=== PATIENT | male | born 1960 | race Native Hawaiian/Other Pacific Islander ===

== ENCOUNTER 2017-09-30 18:10 | Emergency (ER) | payer SELFPAY ==
[2017-09-30 18:58] LABS: Bilirubin,Urine NEG (Negative); Blood,Urine NEG (Negative); Color,Urine Yellow (Yellow); Hyaline Casts,Urine 1 /LPF; Mucus,Urine FEW /HPF; Protein,Urine <15 mg/dL mg/dL (Negative); Urobilinogen,Urine < 2.0 mg/dL (<2.0)
[2017-09-30 19:15] LABS: Amphetamine Screen,Urine PRESUMPTIVE NEGATIVE; Cannabinoid Screen,Urine PRESUMPTIVE NEGATIVE; Cocaine Screen,Urine PRESUMPTIVE NEGATIVE; Methadone Screen,Urine PRESUMPTIVE NEGATIVE; Opiate Screen,Urine PRESUMPTIVE NEGATIVE
[2017-09-30 19:29] LABS: Benzodiazepines Screen,Urine PRESUMPTIVE POSITIVE
[2017-09-30 19:36] LABS: Hematocrit 39.4 % (35.5-45.6); Hemoglobin 13.4 gm/dl (11.8-15.2); Mean Corpuscular HGB Conc 34 % (32-34); Mean Corpuscular Hemoglobin 33 pg (28-32); Mean Corpuscular Volume 96 fl (84-94); Platelet Count 242 K/mm3 (140-440); Red Blood Count 4.09 M/mm3 (3.65-5.03)
[2017-09-30 19:57] LABS: Alanine Aminotransferase 232 units/L (7-56); Albumin 4.1 g/dL (3.9-5); BUN/Creatinine Ratio 15; Blood Urea Nitrogen 12 mg/dL (9-20); Calcium 8.6 mg/dL (8.4-10.2); Hemolysis Index 8
[2017-09-30 20:13] LABS: Basophils % (Manual) 0 % (0.0-1.8); Total Cells Counted 100
[2017-09-30 20:14] LABS: RBC Morphology Normal
[2017-10-01] MEDS ORDERED: ATIVAN IV ONE (03:15)
[2017-10-01] MEDS ORDERED: NACL 0.9% 1000 ML 1,000 ML IV ONE (03:15)
[2017-10-01 03:46] LABS: INR 0.87 (0.87-1.13)
--- NOTE | 2017-10-01 04:06 | XRay Report ---
FINAL REPORT PROCEDURE: XR CHEST ROUTINE 2V TECHNIQUE: PA and lateral chest radiographs were obtained. CPT 80098 HISTORY: Alcohol Intoxication COMPARISON: No prior studies are available for comparison. FINDINGS: Heart: Normal. Mediastinum/Vessels: Normal. Lungs/Pleural space: Normal. Bony thorax: No acute osseous abnormality. Other: IMPRESSION: Normal examination.
[2017-10-01 06:06] LABS: Bilirubin,Urine NEG (Negative); Blood,Urine NEG (Negative); Color,Urine Straw (Yellow); Protein,Urine <15 mg/dL mg/dL (Negative); RBC,Urine < 1.0 /HPF (0.0-6.0); Urobilinogen,Urine < 2.0 mg/dL (<2.0); WBC,Urine < 1.0 /HPF (0.0-6.0)
[2017-10-01 06:14] LABS: Amphetamine Screen,Urine PRESUMPTIVE NEGATIVE; Cannabinoid Screen,Urine PRESUMPTIVE NEGATIVE; Cocaine Screen,Urine PRESUMPTIVE NEGATIVE; Methadone Screen,Urine PRESUMPTIVE NEGATIVE; Opiate Screen,Urine PRESUMPTIVE NEGATIVE
[2017-10-01 06:25] LABS: Benzodiazepines Screen,Urine PRESUMPTIVE POSITIVE
--- NOTE | 2017-10-01 06:27 | Emergency Department Report ---
<CHRIS LOZADA - Last Filed: 10/01/17 06:27> ED Alcohol HPI - General Chief Complaint: Alcohol Stated Complaint: DETOX Time Seen by Provider: 10/01/17 03:15 Source: patient Mode of arrival: Ambulatory Limitations: No Limitations - History of Present Illness MD Complaint: alcohol intoxication, medical clearance for det Time Since Last Drink: 18 -: hour(s) Chronic Alcohol Use: Yes Previous Visits for Alcohol Intoxication?: No Recent Trauma: No Associated Symptoms: denies other symptoms. denies: nausea, vomiting, syncope, seizure, tremors, abdominal pain, depression, suicidality Treatments Prior to Arrival: none - Related Data Home Medications Medication Instructions Recorded Confirmed Last Taken Aspirin 81 mg PO DAILY 10/01/17 10/01/17 09/29/17 Carvedilol [Coreg] 6.25 mg PO DAILY 10/01/17 10/01/17 09/29/17 Diazepam Tab [Valium] 5 mg PO TID PRN 10/01/17 10/01/17 09/29/17 Losartan [Cozaar] 100 mg PO QDAY 10/01/17 10/01/17 09/29/17 busPIRone [Buspar] 15 mg PO DAILY 10/01/17 10/01/17 Unknown Allergies Allergy/AdvReac Type Severity Reaction Status Date / Time No Known Allergies Allergy Verified 10/01/17 06:36 ED Review of Systems ROS: Stated complaint: DETOX Other details as noted in HPI Constitutional: denies: chills, fever ENT: denies: ear pain, throat pain Respiratory: denies: cough, shortness of breath, wheezing Cardiovascular: denies: chest pain, palpitations Endocrine: no symptoms reported Gastrointestinal: denies: abdominal pain, nausea, diarrhea Genitourinary: denies: urgency, dysuria Musculoskeletal: denies: back pain, joint swelling, arthralgia Skin: denies: rash, lesions Neurological: denies: headache, weakness, paresthesias Psychiatric: denies: anxiety, depression Hematological/Lymphatic: denies: easy bleeding, easy bruising ED Past Medical Hx - Past Medical History Previous Medical History?: Yes Hx Hypertension: Yes Hx Psychiatric Treatment: Yes (depression, anxiety, etoh abuse) - Surgical History Past Surgical History?: Yes Additional Surgical History: bilateral THR, hernia repair - Social History Smoking Status: Former Smoker Substance Use Type: Alcohol - Medications Home Medications: Home Medications Medication Instructions Recorded Confirmed Last Taken Type Aspirin 81 mg PO DAILY 10/01/17 10/01/17 09/29/17 History Carvedilol [Coreg] 6.25 mg PO DAILY 10/01/17 10/01/17 09/29/17 History Diazepam Tab [Valium] 5 mg PO TID PRN 10/01/17 10/01/17 09/29/17 History Losartan [Cozaar] 100 mg PO QDAY 10/01/17 10/01/17 09/29/17 History busPIRone [Buspar] 15 mg PO DAILY 10/01/17 10/01/17 Unknown History ED Physical Exam - General Limitations: No Limitations General appearance: alert, in no apparent distress - Head Head exam: Present: atraumatic, normocephalic - Eye Eye exam: Present: PERRL - ENT ENT exam: Present: normal exam, mucous membranes moist - Neck Neck exam: Present: normal inspection, full ROM. Absent: tenderness - Respiratory Respiratory exam: Present: normal lung sounds bilaterally. Absent: wheezes, rales, chest wall tenderness - Cardiovascular Cardiovascular Exam: Present: regular rate, normal heart sounds - GI/Abdominal GI/Abdominal exam: Present: soft. Absent: tenderness, guarding, normal bowel sounds - Rectal Rectal exam: Present: deferred - Extremities Exam Extremities exam: Present: normal inspection, full ROM. Absent: tenderness, pedal edema, other (no tremor) - Back Exam Back exam: Present: normal inspection. Absent: tenderness - Neurological Exam Neurological exam: Present: alert, oriented X3, CN II-XII intact. Absent: motor sensory deficit, reflexes normal - Psychiatric Psychiatric exam: Present: normal affect, normal mood. Absent: agitated, anxious - Skin Skin exam: Present: warm, dry. Absent: diaphoretic, petechiae, ecchymosis ED Course Vital Signs 09/30/17 10/01/17 10/01/17 18:13 01:15 03:52 Temperature 97.7 F 97.9 F Pulse Rate 80 68 Respiratory 18 20 18 Rate Blood Pressure 118/77 155/107 Blood Pressure [Left] O2 Sat by Pulse 97 96 98 Oximetry 10/01/17 10/01/17 10/01/17 06:00 07:30 08:02 Temperature 98.5 F Pulse Rate 89 78 Respiratory 16 18 18 Rate Blood Pressure Blood Pressure 146/91 139/84 [Left] O2 Sat by Pulse 100 97 97 Oximetry - Reevaluation(s) Reevaluation #1: 10/01/17 06:30 Tolerated liquids and meal without difficulty. Resting comfortably ED Medical Decision Making - Lab Data Result diagrams: 09/30/17 19:13 09/30/17 19:13 Initial alcohol on triage, 0.12, repeat examination less than 0.01. Critical Care Time: No Critical care attestation.: If time is entered above; I have spent that time in minutes in the direct care of this critically ill patient, excluding procedure time. ED Disposition Clinical Impression: Alcohol abuse, Hypokalemia, Hypomagnesemia Disposition: DC-01 TO HOME OR SELFCARE Is pt being admited?: No Does the pt Need Aspirin: No Condition: Stable Instructions: Abuse of Alcohol (ED) Additional Instructions: Follow up with [facility] or one of the other resources provided to you upon discharge. Please return if symptoms worsen as indicated by your discharge instructions. Mayr Beth un seguimiento con la cricket mental del [place] o roger de los otros recursos que se le brindan al momento del cayetano. Por favor regrese si los sntomas empeoran segn lo indicado por taina instrucciones de cayetano. Referrals: [facility] [Provider Group] - 3-5 Days (Primary care clinic) Time of Disposition: 06:31 Print Language: MALIAN <ETELVINA HART - Last Filed: 10/01/17 11:12> ED Course - Reevaluation(s) Reevaluation #2: 10/01/17 11:08 Patient reevaluated by myself. A heart rate is normal and he does not have any signs of alcohol withdrawal tremors this time although he reports history of tremors in the past with alcohol withdrawal. ED Medical Decision Making - Lab Data Result diagrams: 09/30/17 19:13 09/30/17 19:13 Lab Results 09/30/17 09/30/17 09/30/17 Range/Units 18:36 18:36 19:13 WBC (4.5-11.0) K/mm3 RBC (3.65-5.03) M/mm3 Hgb (11.8-15.2) gm/dl Hct (35.5-45.6) % MCV (84-94) fl MCH (28-32) pg MCHC (32-34) % RDW (13.2-15.2) % Plt Count (140-440) K/mm3 Add Manual Diff Total Counted Seg Neutrophils % Seg Neuts % (Manual) (40.0-70.0) % Band Neutrophils % % Lymphocytes % (Manual) (13.4-35.0) % Reactive Lymphs % (Man) % Monocytes % (Manual) (0.0-7.3) % Eosinophils % (Manual) (0.0-4.3) % Basophils % (Manual) (0.0-1.8) % Metamyelocytes % % Myelocytes % % Promyelocytes % % Blast Cells % % Nucleated RBC % Seg Neutrophils # Man (1.8-7.7) K/mm3 Band Neutrophils # K/mm3 Lymphocytes # (Manual) (1.2-5.4) K/mm3 Abs React Lymphs (Man) K/mm3 Monocytes # (Manual) (0.0-0.8) K/mm3 Eosinophils # (Manual) (0.0-0.4) K/mm3 Basophils # (Manual) (0.0-0.1) K/mm3 Metamyelocytes # K/mm3 Myelocytes # K/mm3 Promyelocytes # K/mm3 Blast Cells # K/mm3 WBC Morphology Hypersegmented Neuts Hyposegmented Neuts Hypogranular Neuts Smudge Cells Toxic Granulation Toxic Vacuolation Dohle Bodies Pelger-Huet Anomaly Silvio Rods Platelet Estimate Clumped Platelets Plt Clumps, EDTA Large Platelets Giant Platelets Platelet Satelliting Plt Morphology Comment RBC Morphology Dimorphic RBCs Polychromasia Hypochromasia Poikilocytosis Anisocytosis Microcytosis Macrocytosis Spherocytes Pappenheimer Bodies Sickle Cells Target Cells Tear Drop Cells Ovalocytes Helmet Cells [place] Bodies [place] Rings Marissa Cells Bite Cells Crenated Cell Elliptocytes Acanthocytes (Spur) Rouleaux Hemoglobin C Crystals Schistocytes Malaria parasites David Bodies Hem Pathologist Commnt PT (12.2-14.9) Sec. INR (0.87-1.13) Sodium (137-145) mmol/L Potassium (3.6-5.0) mmol/L Chloride (98-107) mmol/L Carbon Dioxide (22-30) mmol/L Anion Gap mmol/L BUN (9-20) mg/dL Creatinine (0.8-1.5) mg/dL Estimated GFR ml/min BUN/Creatinine Ratio % Glucose (75-100) mg/dL Calcium (8.4-10.2) mg/dL Magnesium (1.7-2.3) mg/dL Total Bilirubin (0.1-1.2) mg/dL AST (5-40) units/L ALT (7-56) units/L Alkaline Phosphatase (35-129) units/L Total Protein (6.3-8.2) g/dL Albumin (3.9-5) g/dL Albumin/Globulin Ratio % Lipase (13-60) units/L Urine Color Yellow (Yellow) Urine Turbidity Clear (Clear) Urine pH 5.0 (5.0-7.0) Ur Specific [place] 1.015 (1.003-1.030) Urine Protein <15 mg/dl (Negative) mg/dL Urine Glucose (UA) Neg (Negative) mg/dL Urine Ketones Neg (Negative) mg/dL Urine Blood Neg (Negative) Urine Nitrite Neg (Negative) Urine Bilirubin Neg (Negative) Urine Urobilinogen < 2.0 (<2.0) mg/dL Ur Leukocyte Esterase Neg (Negative) Urine WBC (Auto) 1.0 (0.0-6.0) /HPF Urine RBC (Auto) 4.0 (0.0-6.0) /HPF Hyaline Casts 1 /LPF Urine Mucus Few /HPF Salicylates < 0.3 L (2.8-20.0) mg/dL Urine Opiates Screen Presumptive negative Urine Methadone Screen Presumptive negative Acetaminophen (10.0-30.0) ug/mL Ur Barbiturates Screen Presumptive negative Ur Phencyclidine Scrn Presumptive negative Ur Amphetamines Screen Presumptive negative U Benzodiazepines Scrn Presumptive positive Urine Cocaine Screen Presumptive negative U Marijuana (THC) Screen Presumptive negative Drugs of Abuse Note Disclamer Plasma/Serum Alcohol (0-0.07) % 09/30/17 09/30/17 09/30/17 Range/Units 19:13 19:13 19:13 WBC 3.6 L (4.5-11.0) K/mm3 RBC 4.09 (3.65-5.03) M/mm3 Hgb 13.4 (11.8-15.2) gm/dl Hct 39.4 (35.5-45.6) % MCV 96 H (84-94) fl MCH 33 H (28-32) pg MCHC 34 (32-34) % RDW 15.0 (13.2-15.2) % Plt Count 242 (140-440) K/mm3 Add Manual Diff Complete Total Counted 100 Seg Neutrophils % Oil Extractor Seg Neuts % (Manual) 30.0 L (40.0-70.0) % Band Neutrophils % 0 % Lymphocytes % (Manual) 56.0 H (13.4-35.0) % Reactive Lymphs % (Man) 0 % Monocytes % (Manual) 9.0 H (0.0-7.3) % Eosinophils % (Manual) 5.0 H (0.0-4.3) % Basophils % (Manual) 0 (0.0-1.8) % Metamyelocytes % 0 % Myelocytes % 0 % Promyelocytes % 0 % Blast Cells % 0 % Nucleated RBC % Not Reportable Seg Neutrophils # Man 1.1 L (1.8-7.7) K/mm3 Band Neutrophils # 0.0 K/mm3 Lymphocytes # (Manual) 2.0 (1.2-5.4) K/mm3 Abs React Lymphs (Man) 0.0 K/mm3 Monocytes # (Manual) 0.3 (0.0-0.8) K/mm3 Eosinophils # (Manual) 0.2 (0.0-0.4) K/mm3 Basophils # (Manual) 0.0 (0.0-0.1) K/mm3 Metamyelocytes # 0.0 K/mm3 Myelocytes # 0.0 K/mm3 Promyelocytes # 0.0 K/mm3 Blast Cells # 0.0 K/mm3 WBC Morphology Not Reportable Hypersegmented Neuts Not Reportable Hyposegmented Neuts Not Reportable Hypogranular Neuts Not Reportable Smudge Cells Not Reportable Toxic Granulation Not Reportable Toxic Vacuolation Not Reportable Dohle Bodies Not Reportable Pelger-Huet Anomaly Not Reportable Silvio Rods Not Reportable Platelet Estimate Appears normal Clumped Platelets Not Reportable Plt Clumps, EDTA Not Reportable Large Platelets Not Reportable Giant Platelets Not Reportable Platelet Satelliting Not Reportable Plt Morphology Comment Not Reportable RBC Morphology Normal Dimorphic RBCs Not Reportable Polychromasia Not Reportable Hypochromasia Not Reportable Poikilocytosis Not Reportable Anisocytosis Not Reportable Microcytosis Not Reportable Macrocytosis Not Reportable Spherocytes Not Reportable Pappenheimer Bodies Not Reportable Sickle Cells Not Reportable Target Cells Not Reportable Tear Drop Cells Not Reportable Ovalocytes Not Reportable Helmet Cells Not Reportable [place] Bodies Not Reportable [place] Rings Not Reportable Corinne Cells Not Reportable Bite Cells Not Reportable Crenated Cell Not Reportable Elliptocytes Not Reportable Acanthocytes (Spur) Not Reportable Rouleaux Not Reportable Hemoglobin C Crystals Not Reportable Schistocytes Not Reportable Malaria parasites Not Reportable David Bodies Not Reportable Hem Pathologist Commnt No PT (12.2-14.9) Sec. INR (0.87-1.13) Sodium (137-145) mmol/L Potassium (3.6-5.0) mmol/L Chloride (98-107) mmol/L Carbon Dioxide (22-30) mmol/L Anion Gap mmol/L BUN (9-20) mg/dL Creatinine (0.8-1.5) mg/dL Estimated GFR ml/min BUN/Creatinine Ratio % Glucose (75-100) mg/dL Calcium (8.4-10.2) mg/dL Magnesium (1.7-2.3) mg/dL Total Bilirubin (0.1-1.2) mg/dL AST (5-40) units/L ALT (7-56) units/L Alkaline Phosphatase (35-129) units/L Total Protein (6.3-8.2) g/dL Albumin (3.9-5) g/dL Albumin/Globulin Ratio % Lipase (13-60) units/L Urine Color (Yellow) Urine Turbidity (Clear) Urine pH (5.0-7.0) Ur Specific [place] (1.003-1.030) Urine Protein (Negative) mg/dL Urine Glucose (UA) (Negative) mg/dL Urine Ketones (Negative) mg/dL Urine Blood (Negative) Urine Nitrite (Negative) Urine Bilirubin (Negative) Urine Urobilinogen (<2.0) mg/dL Ur Leukocyte Esterase (Negative) Urine WBC (Auto) (0.0-6.0) /HPF Urine RBC (Auto) (0.0-6.0) /HPF Hyaline Casts /LPF Urine Mucus /HPF Salicylates (2.8-20.0) mg/dL Urine Opiates Screen Urine Methadone Screen Acetaminophen < 5.0 L (10.0-30.0) ug/mL Ur Barbiturates Screen Ur Phencyclidine Scrn Ur Amphetamines Screen U Benzodiazepines Scrn Urine Cocaine Screen U Marijuana (THC) Screen Drugs of Abuse Note Plasma/Serum Alcohol 0.12 H (0-0.07) % 09/30/17 10/01/17 10/01/17 Range/Units 19:13 03:23 03:23 WBC (4.5-11.0) K/mm3 RBC (3.65-5.03) M/mm3 Hgb (11.8-15.2) gm/dl Hct (35.5-45.6) % MCV (84-94) fl MCH (28-32) pg MCHC (32-34) % RDW (13.2-15.2) % Plt Count (140-440) K/mm3 Add Manual Diff Total Counted Seg Neutrophils % Seg Neuts % (Manual) (40.0-70.0) % Band Neutrophils % % Lymphocytes % (Manual) (13.4-35.0) % Reactive Lymphs % (Man) % Monocytes % (Manual) (0.0-7.3) % Eosinophils % (Manual) (0.0-4.3) % Basophils % (Manual) (0.0-1.8) % Metamyelocytes % % Myelocytes % % Promyelocytes % % Blast Cells % % Nucleated RBC % Seg Neutrophils # Man (1.8-7.7) K/mm3 Band Neutrophils # K/mm3 Lymphocytes # (Manual) (1.2-5.4) K/mm3 Abs React Lymphs (Man) K/mm3 Monocytes # (Manual) (0.0-0.8) K/mm3 Eosinophils # (Manual) (0.0-0.4) K/mm3 Basophils # (Manual) (0.0-0.1) K/mm3 Metamyelocytes # K/mm3 Myelocytes # K/mm3 Promyelocytes # K/mm3 Blast Cells # K/mm3 WBC Morphology Hypersegmented Neuts Hyposegmented Neuts Hypogranular Neuts Smudge Cells Toxic Granulation Toxic Vacuolation Dohle Bodies Pelger-Huet Anomaly Silvio Rods Platelet Estimate Clumped Platelets Plt Clumps, EDTA Large Platelets Giant Platelets Platelet Satelliting Plt Morphology Comment RBC Morphology Dimorphic RBCs Polychromasia Hypochromasia Poikilocytosis Anisocytosis Microcytosis Macrocytosis Spherocytes Pappenheimer Bodies Sickle Cells Target Cells Tear Drop Cells Ovalocytes Helmet Cells [place] Bodies [place] Rings Corinne Cells Bite Cells Crenated Cell Elliptocytes Acanthocytes (Spur) Rouleaux Hemoglobin C Crystals Schistocytes Malaria parasites David Bodies Hem Pathologist Commnt PT 12.2 (12.2-14.9) Sec. INR 0.87 (0.87-1.13) Sodium 144 (137-145) mmol/L Potassium 3.1 L (3.6-5.0) mmol/L Chloride 102.3 (98-107) mmol/L Carbon Dioxide 26 (22-30) mmol/L Anion Gap 19 mmol/L BUN 12 (9-20) mg/dL Creatinine 0.8 (0.8-1.5) mg/dL Estimated GFR > 60 ml/min BUN/Creatinine Ratio 15 % Glucose 91 (75-100) mg/dL Calcium 8.6 (8.4-10.2) mg/dL Magnesium (1.7-2.3) mg/dL Total Bilirubin < 0.20 (0.1-1.2) mg/dL AST 218 H (5-40) units/L ALT 232 H (7-56) units/L Alkaline Phosphatase 68 (35-129) units/L Total Protein 7.0 (6.3-8.2) g/dL Albumin 4.1 (3.9-5) g/dL Albumin/Globulin Ratio 1.4 % Lipase (13-60) units/L Urine Color (Yellow) Urine Turbidity (Clear) Urine pH (5.0-7.0) Ur Specific [place] (1.003-1.030) Urine Protein (Negative) mg/dL Urine Glucose (UA) (Negative) mg/dL Urine Ketones (Negative) mg/dL Urine Blood (Negative) Urine Nitrite (Negative) Urine Bilirubin (Negative) Urine Urobilinogen (<2.0) mg/dL Ur Leukocyte Esterase (Negative) Urine WBC (Auto) (0.0-6.0) /HPF Urine RBC (Auto) (0.0-6.0) /HPF Hyaline Casts /LPF Urine Mucus /HPF Salicylates (2.8-20.0) mg/dL Urine Opiates Screen Urine Methadone Screen Acetaminophen (10.0-30.0) ug/mL Ur Barbiturates Screen Ur Phencyclidine Scrn Ur Amphetamines Screen U Benzodiazepines Scrn Urine Cocaine Screen U Marijuana (THC) Screen Drugs of Abuse Note Plasma/Serum Alcohol < 0.01 (0-0.07) % 10/01/17 10/01/17 10/01/17 Range/Units 03:23 05:39 05:39 WBC (4.5-11.0) K/mm3 RBC (3.65-5.03) M/mm3 Hgb (11.8-15.2) gm/dl Hct (35.5-45.6) % MCV (84-94) fl MCH (28-32) pg MCHC (32-34) % RDW (13.2-15.2) % Plt Count (140-440) K/mm3 Add Manual Diff Total Counted Seg Neutrophils % Seg Neuts % (Manual) (40.0-70.0) % Band Neutrophils % % Lymphocytes % (Manual) (13.4-35.0) % Reactive Lymphs % (Man) % Monocytes % (Manual) (0.0-7.3) % Eosinophils % (Manual) (0.0-4.3) % Basophils % (Manual) (0.0-1.8) % Metamyelocytes % % Myelocytes % % Promyelocytes % % Blast Cells % % Nucleated RBC % Seg Neutrophils # Man (1.8-7.7) K/mm3 Band Neutrophils # K/mm3 Lymphocytes # (Manual) (1.2-5.4) K/mm3 Abs React Lymphs (Man) K/mm3 Monocytes # (Manual) (0.0-0.8) K/mm3 Eosinophils # (Manual) (0.0-0.4) K/mm3 Basophils # (Manual) (0.0-0.1) K/mm3 Metamyelocytes # K/mm3 Myelocytes # K/mm3 Promyelocytes # K/mm3 Blast Cells # K/mm3 WBC Morphology Hypersegmented Neuts Hyposegmented Neuts Hypogranular Neuts Smudge Cells Toxic Granulation Toxic Vacuolation Dohle Bodies Pelger-Huet Anomaly Silvio Rods Platelet Estimate Clumped Platelets Plt Clumps, EDTA Large Platelets Giant Platelets Platelet Satelliting Plt Morphology Comment RBC Morphology Dimorphic RBCs Polychromasia Hypochromasia Poikilocytosis Anisocytosis Microcytosis Macrocytosis Spherocytes Pappenheimer Bodies Sickle Cells Target Cells Tear Drop Cells Ovalocytes Helmet Cells [place] Bodies [place] Rings Marissa Cells Bite Cells Crenated Cell Elliptocytes Acanthocytes (Spur) Rouleaux Hemoglobin C Crystals Schistocytes Malaria parasites David Bodies Hem Pathologist Commnt PT (12.2-14.9) Sec. INR (0.87-1.13) Sodium (137-145) mmol/L Potassium (3.6-5.0) mmol/L Chloride (98-107) mmol/L Carbon Dioxide (22-30) mmol/L Anion Gap mmol/L BUN (9-20) mg/dL Creatinine (0.8-1.5) mg/dL Estimated GFR ml/min BUN/Creatinine Ratio % Glucose (75-100) mg/dL Calcium (8.4-10.2) mg/dL Magnesium 1.60 L (1.7-2.3) mg/dL Total Bilirubin (0.1-1.2) mg/dL AST (5-40) units/L ALT (7-56) units/L Alkaline Phosphatase (35-129) units/L Total Protein (6.3-8.2) g/dL Albumin (3.9-5) g/dL Albumin/Globulin Ratio % Lipase 126 H (13-60) units/L Urine Color Straw (Yellow) Urine Turbidity Clear (Clear) Urine pH 6.0 (5.0-7.0) Ur Specific [place] 1.001 L (1.003-1.030) Urine Protein <15 mg/dl (Negative) mg/dL Urine Glucose (UA) Neg (Negative) mg/dL Urine Ketones Neg (Negative) mg/dL Urine Blood Neg (Negative) Urine Nitrite Neg (Negative) Urine Bilirubin Neg (Negative) Urine Urobilinogen < 2.0 (<2.0) mg/dL Ur Leukocyte Esterase Neg (Negative) Urine WBC (Auto) < 1.0 (0.0-6.0) /HPF Urine RBC (Auto) < 1.0 (0.0-6.0) /HPF Hyaline Casts /LPF Urine Mucus /HPF Salicylates (2.8-20.0) mg/dL Urine Opiates Screen Presumptive negative Urine Methadone Screen Presumptive negative Acetaminophen (10.0-30.0) ug/mL Ur Barbiturates Screen Presumptive negative Ur Phencyclidine Scrn Presumptive negative Ur Amphetamines Screen Presumptive negative U Benzodiazepines Scrn Presumptive positive Urine Cocaine Screen Presumptive negative U Marijuana (THC) Screen Presumptive negative Drugs of Abuse Note Disclamer Plasma/Serum Alcohol (0-0.07) % - Medical Decision Making Patient was seen and evaluated by mental health and does not meet criteria for inpatient treatment. During ED stay patient receives supplementation of potassium, magnesium, and banana bag. No tachycardia or tremors noted at discharge. Patient informed that quitting cold turkey can lead to worsening tremors, seizure, and confusion and is important for him to follow up with an outpatient treatment program. He was provided several releases for outpatient treatment programs in follow-up by mental health prior to discharge ED Disposition Is pt being admited?: No Does the pt Need Aspirin: No Time of Disposition: 11:12
[2017-10-01] MEDS ORDERED: VITAMIN B-1 100 MG, FOLVITE 1 MG, INFUVITE 10 ML in NACL 0.9% 1000 ML 1,000 ML IV ONE (06:32)
[2017-10-01] MEDS ORDERED: MAGNESIUM SULFATE 2GM/50ML 2 GM/50 ML BAG IV ONE (06:37)
[2017-10-01] MEDS ORDERED: K-DUR PO ONE (06:39)
[2017-10-01] MEDS ORDERED: D5W/0.45% NACL/KCL 20 MEQ 20 MEQ/1,000 ML BAG IV SCH (07:00)
[2017-10-01 08:02] VITALS: BP 139/84
== END 2017-10-01 12:52 | disposition home or self-care (01) ==
LOC: ED 18:10
DX: F10.10 Alcohol abuse, uncomplicated (principal); E87.6 Hypokalemia; E83.42 Hypomagnesemia; I10 Essential (primary) hypertension; F32.9 Major depressive disorder, single episode, unspecified; F41.9 Anxiety disorder, unspecified; Z87.891 Personal history of nicotine dependence
CPT/HCPCS: 36415; 71046; 80053; 80307; 81001; 83690; 83735; 85007; 85025; 85610; 96365; 96366; 96375; 99285; G0480; J2060; J3411; J3475; J7030; 80320

== ENCOUNTER 2017-10-01 19:55 | Emergency (ER) | payer SELFPAY ==
[2017-10-01] MEDS ORDERED: NORVASC PO ONE (20:31)
--- NOTE | 2017-10-01 20:31 | Emergency Department Report ---
ED General Adult HPI - General Chief complaint: High BP Stated complaint: ELEVATED BP Time Seen by Provider: 10/01/17 20:15 Source: patient, EMS Mode of arrival: Ambulatory Limitations: No Limitations - History of Present Illness Initial comments: She is a 57-year-old male sent to the ER for medical clearance for high blood pressure. Patient states that he was at [facility] and his blood pressure was high there so they sent him back to the emergency room for management of his blood pressure. Patient denies chest pain shortness of breath. Patient denies headache and dizziness. Patient denies blurry vision and fever and chills. Patient denies diaphoresis. Patient denies all physical complaints at this time. Patient states he did have a slight headache when he first checked into the emergency room but does not have a headache at this time at all. Patient is currently in [facility] for alcohol rehabilitation. Patient states that he missed his blood pressure medication for last 48 hours patient has been prescribed Coreg 6.25 po Twice a day and losartan 100 daily. -: Gradual Improves with: medication, rest Worsens with: none Associated Symptoms: denies: confusion, chest pain, cough, diaphoresis, fever/ chills, headaches, loss of appetite, malaise, nausea/vomiting, rash, seizure, shortness of breath, syncope, weakness Treatments Prior to Arrival: none - Related Data Home Medications Medication Instructions Recorded Confirmed Last Taken Aspirin 81 mg PO DAILY 10/01/17 10/01/17 09/29/17 Carvedilol [Coreg] 6.25 mg PO DAILY 10/01/17 10/01/17 09/29/17 Diazepam Tab [Valium] 5 mg PO TID PRN 10/01/17 10/01/17 09/29/17 Losartan [Cozaar] 100 mg PO QDAY 10/01/17 10/01/17 09/29/17 busPIRone [Buspar] 15 mg PO DAILY 10/01/17 10/01/17 Unknown Allergies Allergy/AdvReac Type Severity Reaction Status Date / Time No Known Allergies Allergy Verified 10/01/17 06:36 ED Review of Systems ROS: Stated complaint: ELEVATED BP Other details as noted in HPI Constitutional: denies: chills, fever Eyes: denies: eye pain, eye discharge, vision change ENT: denies: ear pain, throat pain Respiratory: denies: cough, shortness of breath, wheezing Cardiovascular: denies: chest pain, palpitations Endocrine: no symptoms reported Gastrointestinal: denies: abdominal pain, nausea, diarrhea Genitourinary: denies: urgency, dysuria Musculoskeletal: denies: back pain, joint swelling, arthralgia Skin: denies: rash, lesions Neurological: denies: headache, weakness, paresthesias Psychiatric: denies: anxiety, depression Hematological/Lymphatic: denies: easy bleeding, easy bruising ED Past Medical Hx - Past Medical History Previous Medical History?: Yes Hx Hypertension: Yes Hx Seizures: Yes Hx Psychiatric Treatment: Yes (depression, anxiety, etoh abuse) Additional medical history: Afib - Surgical History Past Surgical History?: Yes Additional Surgical History: bilateral THR, hernia repair - Family History Family history: hypertension - Social History Smoking Status: Former Smoker Substance Use Type: Alcohol - Medications Home Medications: Home Medications Medication Instructions Recorded Confirmed Last Taken Type Aspirin 81 mg PO DAILY 10/01/17 10/01/17 09/29/17 History Carvedilol [Coreg] 6.25 mg PO DAILY 10/01/17 10/01/17 09/29/17 History Diazepam Tab [Valium] 5 mg PO TID PRN 10/01/17 10/01/17 09/29/17 History Losartan [Cozaar] 100 mg PO QDAY 10/01/17 10/01/17 09/29/17 History busPIRone [Buspar] 15 mg PO DAILY 10/01/17 10/01/17 Unknown History ED Physical Exam - General Limitations: No Limitations General appearance: alert, in no apparent distress - Head Head exam: Present: atraumatic, normocephalic - Eye Eye exam: Present: normal appearance - ENT ENT exam: Present: mucous membranes moist - Neck Neck exam: Present: normal inspection - Respiratory Respiratory exam: Present: normal lung sounds bilaterally. Absent: respiratory distress - Cardiovascular Cardiovascular Exam: Present: regular rate, normal rhythm. Absent: systolic murmur, diastolic murmur, rubs, gallop - GI/Abdominal GI/Abdominal exam: Present: soft, normal bowel sounds - Rectal Rectal exam: Present: deferred - Extremities Exam Extremities exam: Present: normal inspection - Back Exam Back exam: Present: normal inspection - Neurological Exam Neurological exam: Present: alert, oriented X3 - Psychiatric Psychiatric exam: Present: normal affect, normal mood - Skin Skin exam: Present: warm, dry, intact, normal color. Absent: rash ED Course Vital Signs 10/01/17 10/01/17 10/01/17 20:00 20:09 20:15 Temperature 98.4 F Pulse Rate 63 Respiratory 16 Rate Blood Pressure 164/109 164/109 Blood Pressure [Left] O2 Sat by Pulse 98 98 93 Oximetry 10/01/17 10/01/17 10/01/17 20:31 20:32 20:38 Temperature Pulse Rate 59 L Respiratory 14 Rate Blood Pressure 167/93 167/93 Blood Pressure [Left] O2 Sat by Pulse 91 97 Oximetry 10/01/17 10/01/17 10/01/17 20:46 21:00 21:16 Temperature Pulse Rate Respiratory Rate Blood Pressure 167/93 160/101 160/101 Blood Pressure [Left] O2 Sat by Pulse 95 97 95 Oximetry 10/01/17 10/01/17 10/01/17 21:30 21:46 22:00 Temperature Pulse Rate Respiratory Rate Blood Pressure 160/101 139/93 139/93 Blood Pressure [Left] O2 Sat by Pulse 93 93 93 Oximetry 10/01/17 10/01/17 10/01/17 22:16 22:29 22:30 Temperature Pulse Rate 61 Respiratory Rate Blood Pressure 150/86 150/86 150/86 Blood Pressure [Left] O2 Sat by Pulse 95 98 Oximetry 10/01/17 10/01/17 10/01/17 22:46 23:15 23:24 Temperature 97.9 F Pulse Rate 64 Respiratory 16 Rate Blood Pressure 140/92 149/89 Blood Pressure 149/89 [Left] O2 Sat by Pulse 95 98 Oximetry - Reevaluation(s) Reevaluation #1: Patient's blood pressure is high and at this time is 164/109. However patient states at [facility] his blood pressure was 177/120. We'll give patient a dose of 5 mg Norvasc and reassess his blood pressure 10/01/17 20:29 Reevaluation #2: Blood pressure is better at 150/80. Patient is resting comfortably. Patient denies any physical complaints. We will give patient losartan 50 mg and reassess blood pressure 10/01/17 22:19 Reevaluation #3: The pressure at this time is 140/90. Patient is stable for discharge and will be sent back to [facility]. Discussed with patient being compliant with his blood pressure medications. Patient is to restart blood pressure medications in the morning. Discussed plan of care with patient patient agrees with discharge and plan of care. 10/01/17 22:54 ED Medical Decision Making - Medical Decision Making This 57-year-old male that presented to the emergency room for management of his high blood pressure. Patient was sent over here from his rehabilitation center. It was discovered the patient has not been taking his blood pressure medications. Patient was instructed take his blood pressure meds as prescribed. Patient's blood pressure has normalized during his stay in the ER. Patient will be transported back to [facility] to continue on with his alcohol rehabilitation. Patient is stable at this time. - Differential Diagnosis compliance. High blood pressure. Missed medications. Critical care attestation.: If time is entered above; I have spent that time in minutes in the direct care of this critically ill patient, excluding procedure time. ED Disposition Clinical Impression: Alcohol abuse, Noncompliance with medication regimen Hypertension Qualifiers: Hypertension type: essential hypertension Qualified Code(s): I10 - Essential ( primary) hypertension Disposition: DC/TX-65 PSY HOSP/PSY UNIT Is pt being admited?: No Does the pt Need Aspirin: No Condition: Stable Instructions: Hypertension (ED) Additional Instructions: Patient is to follow up with primary care in 3-5 days. Patient to take all blood pressure medications as directed. Patient to return to ER if condition worsens. Patient increase water. Patient is a low salt diet. Patient heart healthy diet. Patient to return to [facility] to continue alcohol rehabilitation. Referrals: PRIMARY CARE, [Primary Care Provider] - 3-5 Days Time of Disposition: 22:55
[2017-10-01 20:49] LABS: Bilirubin,Urine NEG (Negative); Blood,Urine NEG (Negative); Color,Urine Straw (Yellow); Protein,Urine <15 mg/dL mg/dL (Negative); RBC,Urine < 1.0 /HPF (0.0-6.0); Urobilinogen,Urine < 2.0 mg/dL (<2.0); WBC,Urine < 1.0 /HPF (0.0-6.0)
[2017-10-01 21:10] LABS: Amphetamine Screen,Urine PRESUMPTIVE NEGATIVE; Cannabinoid Screen,Urine PRESUMPTIVE NEGATIVE; Cocaine Screen,Urine PRESUMPTIVE NEGATIVE; Methadone Screen,Urine PRESUMPTIVE NEGATIVE; Opiate Screen,Urine PRESUMPTIVE NEGATIVE
[2017-10-01 21:24] LABS: Benzodiazepines Screen,Urine PRESUMPTIVE POSITIVE
[2017-10-01] MEDS ORDERED: COZAAR PO ONE (22:17)
[2017-10-01 23:26] VITALS: BP 149/89
== END 2017-10-02 03:30 ==
LOC: ED 19:55
DX: I10 Essential (primary) hypertension (principal); F32.9 Major depressive disorder, single episode, unspecified; F10.10 Alcohol abuse, uncomplicated; F41.9 Anxiety disorder, unspecified; Z91.14 Patient's other noncompliance with medication regimen; Z87.891 Personal history of nicotine dependence; Z79.899 Other long term (current) drug therapy
CPT/HCPCS: 80307; 81001; 99284

== ENCOUNTER 2017-10-02 09:10 | Emergency (ER) | payer SELFPAY ==
[2017-10-02] MEDS ORDERED: COREG ONE (09:17)
[2017-10-02] MEDS ORDERED: COZAAR ONE (09:17)
[2017-10-02] MEDS ORDERED: COZAAR PO ONE (09:23)
[2017-10-02] MEDS ORDERED: COREG PO ONE (09:23)
[2017-10-02] MEDS ORDERED: ATIVAN IV ONE (10:15)
--- NOTE | 2017-10-02 10:17 | Emergency Department Report ---
Blank Doc - Documentation Documentation: Mr. Ga is 57-year-old male with history of hypertension and alcohol abuse. Patient stated that he has been drinking daily but for the last 2 days he stopped drinking. Patient was sent from [place] for possible alcohol was told management. Patient is complaining of tremor and shaking. Patient blood pressure is 171/120. I believe this patient is going through alcohol withdrawal symptoms. Ativan 2 mg IV is ordered, patient will need to be managed in our main ED.
[2017-10-02] MEDS ORDERED: ATIVAN ONE (12:28)
[2017-10-02 12:33] LABS: Hematocrit 41.1 % (35.5-45.6); Hemoglobin 14.1 gm/dl (11.8-15.2); Mean Corpuscular HGB Conc 34 % (32-34); Mean Corpuscular Hemoglobin 33 pg (28-32); Mean Corpuscular Volume 96 fl (84-94); Platelet Count 292 K/mm3 (140-440); Red Cell Distribution Width 15.2 % (13.2-15.2)
--- NOTE | 2017-10-02 13:07 | Cat Scan Report ---
FINAL REPORT EXAM: CT HEAD/BRAIN WO CON HISTORY: headache TECHNIQUE: CT of the head was performed. No intravenous contrast was administered. PRIORS: None. 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 There are old bilateral lacunar infarcts involving basal ganglia. There is no evidence of intracranial hemorrhage. There is no edema, mass effect or midline shift. There are no abnormal extra-axial fluid collections. The ventricles are appropriate for brain volume. There is no skull fracture seen. The visualized aspects of the sinuses are clear. IMPRESSION: There is no acute intracranial abnormality identified.
[2017-10-02 13:09] LABS: Alanine Aminotransferase 199 units/L (7-56); Albumin 4.4 g/dL (3.9-5); BUN/Creatinine Ratio 11; Blood Urea Nitrogen 9 mg/dL (9-20); Calcium 9.3 mg/dL (8.4-10.2); Hemolysis Index 7
[2017-10-02] MEDS ORDERED: ATIVAN PO ONE (13:35)
[2017-10-02 13:44] LABS: Basophils % (Manual) 0 % (0.0-1.8); Total Cells Counted 100
[2017-10-02 13:45] LABS: Platelet Estimate Consistent w Auto; RBC Morphology Normal
--- NOTE | 2017-10-02 14:25 | Emergency Department Report ---
ED General Adult HPI - General Chief complaint: High BP Stated complaint: HIGH BLOOD PRESSURE Time Seen by Provider: 10/02/17 10:02 Source: patient, EMS Mode of arrival: Ambulatory Limitations: No Limitations - History of Present Illness Initial comments: This is a 57-year-old male who is calm to this facility 3 times in a row from detox for elevated blood pressure. His first visit he mentioned headache but it was not severe. Patient states that he has had intermittent headaches of mild to moderate intensity in the bitemporal region somewhat chronically. He is not complaining of an acute headache now. He was found to be hypertensive again at [facility]. He was sent for evaluation. He is currently on carvedilol and losartan. He states that he is taking this medicine. He was seen by the screening physician who gave him 2 mg of Ativan IV. Apparently, he was perceived to be withdrawing. On my encounter, after the Ativan he was awake and alert and still a bit tremulous. I suspect that he was indeed withdrawing. He denies any photophobia, neck pain, nausea or vomiting. He's had no focal neurological type symptoms at all. He's had intermittent headaches for quite some time, this one is not atypical. -: Gradual Location: head Radiation: non-radiation Quality: other (sometimes throbbing) Consistency: intermittent, now resolved Improves with: none Worsens with: none Associated Symptoms: denies other symptoms Treatments Prior to Arrival: other (antihypertensive medication) - Related Data Home Medications Medication Instructions Recorded Confirmed Last Taken Aspirin 81 mg PO DAILY 10/01/17 10/01/17 09/29/17 Carvedilol [Coreg] 6.25 mg PO DAILY 10/01/17 10/01/17 09/29/17 Diazepam Tab [Valium] 5 mg PO TID PRN 10/01/17 10/01/17 09/29/17 Losartan [Cozaar] 100 mg PO QDAY 10/01/17 10/01/17 09/29/17 busPIRone [Buspar] 15 mg PO DAILY 10/01/17 10/01/17 Unknown Previous Rx's Medication Instructions Recorded Last Taken Type amLODIPine [Norvasc] 5 mg PO DAILY #30 tab 10/02/17 Unknown Rx Allergies Allergy/AdvReac Type Severity Reaction Status Date / Time No Known Allergies Allergy Verified 10/02/17 09:12 ED Review of Systems ROS: Stated complaint: HIGH BLOOD PRESSURE Other details as noted in HPI ED Past Medical Hx - Past Medical History Hx Hypertension: Yes Hx Seizures: Yes Hx Psychiatric Treatment: Yes (depression, anxiety, etoh abuse) Additional medical history: Afib - Surgical History Additional Surgical History: bilateral THR, hernia repair - Social History Smoking Status: Never Smoker Substance Use Type: Alcohol - Medications Home Medications: Home Medications Medication Instructions Recorded Confirmed Last Taken Type Aspirin 81 mg PO DAILY 10/01/17 10/01/17 09/29/17 History Carvedilol [Coreg] 6.25 mg PO DAILY 10/01/17 10/01/17 09/29/17 History Diazepam Tab [Valium] 5 mg PO TID PRN 10/01/17 10/01/17 09/29/17 History Losartan [Cozaar] 100 mg PO QDAY 10/01/17 10/01/17 09/29/17 History busPIRone [Buspar] 15 mg PO DAILY 10/01/17 10/01/17 Unknown History amLODIPine [Norvasc] 5 mg PO DAILY #30 tab 10/02/17 Unknown Rx ED Physical Exam - General Limitations: No Limitations General appearance: alert, in no apparent distress - Head Head exam: Present: atraumatic, normocephalic - Eye Eye exam: Present: normal appearance, PERRL, EOMI. Absent: scleral icterus - ENT ENT exam: Present: mucous membranes moist - Neck Neck exam: Present: normal inspection. Absent: tenderness, meningismus - Respiratory Respiratory exam: Present: normal lung sounds bilaterally. Absent: respiratory distress - Cardiovascular Cardiovascular Exam: Present: regular rate, normal rhythm. Absent: systolic murmur, diastolic murmur, rubs, gallop - GI/Abdominal GI/Abdominal exam: Present: soft, normal bowel sounds. Absent: distended, tenderness, guarding, rebound, rigid - Rectal Rectal exam: Present: deferred - Extremities Exam Extremities exam: Present: normal inspection - Back Exam Back exam: Present: normal inspection - Neurological Exam Neurological exam: Present: alert, oriented X3, CN II-XII intact. Absent: motor sensory deficit - Psychiatric Psychiatric exam: Present: normal affect, normal mood - Skin Skin exam: Present: warm, dry, intact, normal color. Absent: rash ED Course Vital Signs 10/02/17 10/02/1718 09:12 11:27 11:28 Temperature 98.3 F Pulse Rate 71 67 Respiratory 18 18 18 Rate Blood Pressure 171/121 Blood Pressure 162/97 [Right] O2 Sat by Pulse 98 97 Oximetry 10/02/17 13:18 Temperature Pulse Rate 60 Respiratory 16 Rate Blood Pressure Blood Pressure 155/107 [Right] O2 Sat by Pulse 97 Oximetry - Reevaluation(s) Reevaluation #1: The patient remains asymptomatic here. He is given a small dose of labetalol and 1 mg of Ativan by mouth. He was entirely oriented. I'm going to adjust his outpatient regimen. He is to continue his losartan and carvedilol. I'm going to add 5 mg of amlodipine. 10/02/17 14:35 ED Medical Decision Making - Lab Data Result diagrams: 10/02/17 10:30 10/02/17 10:30 - Radiology Data Radiology results: report reviewed Critical care attestation.: If time is entered above; I have spent that time in minutes in the direct care of this critically ill patient, excluding procedure time. ED Disposition Clinical Impression: Poorly-controlled hypertension Alcohol withdrawal Qualifiers: Complication of substance-induced condition: uncomplicated Qualified Code(s): F10.230 - Alcohol dependence with withdrawal, uncomplicated Hypertension Qualifiers: Hypertension type: essential hypertension Qualified Code(s): I10 - Essential ( primary) hypertension Disposition: DC-01 TO HOME OR SELFCARE Is pt being admited?: No Does the pt Need Aspirin: No Condition: Stable Instructions: Hypertension (ED), Alcohol Withdrawal (ED) Additional Instructions: The losartan should be taken once a day. The carvedilol twice a day. I'm going to add a new medication for your blood pressure. Follow up with a primary care provider. Prescriptions: amLODIPine [Norvasc] 5 mg PO DAILY #30 tab Referrals: PRIMARY CARE [Primary Care Provider] - 3-5 Days [facility] [Provider Group] - 2-3 Days Time of Disposition: 14:38
[2017-10-02] MEDS ORDERED: NORMODYNE IV ONE ×3 (14:28→14:35)
[2017-10-02] MEDS ORDERED: NORVASC PO ONE ×2 (14:38→18:05)
[2017-10-02] MEDS ORDERED: NORVASC ONE (18:00)
[2017-10-02 18:07] VITALS: BP 151/104
== END 2017-10-02 15:30 | disposition home or self-care (01) ==
LOC: ED 09:10
DX: I10 Essential (primary) hypertension (principal); F10.230 Alcohol dependence with withdrawal, uncomplicated; F32.9 Major depressive disorder, single episode, unspecified; F41.9 Anxiety disorder, unspecified; I48.91 Unspecified atrial fibrillation
CPT/HCPCS: 36415; 70450; 80053; 85007; 85025; 96374; 96375; 99285; G0480; J2060; 80320